=== PATIENT | female | born 1955 | race Asian ===

== ENCOUNTER 2022-05-12 06:00 | Day surgery (SDC) | payer MEDICAID ==
[~2022-05-12] VITALS: Ht 152.4 cm; Wt 54.4 kg
[2022-05-12] MEDS ORDERED: fentaNYL CITRATE/PF 100 MCG/2 ML AMP ONE (07:06)
[2022-05-12] MEDS ORDERED: MIDAZOLAM HCL 5 MG/5 ML VIAL ONE (07:06)
[2022-05-12 12:03] VITALS: BP_SYST 131
== END 2022-05-12 10:25 | disposition home or self-care (01) ==
LOC: SDS 06:00 → SMU 06:00 → SDS 10:25
PROVIDERS: ATTEND Internal Medicine
DX: Z12.11 Encounter for screening for malignant neoplasm of colon (principal); D12.5 Benign neoplasm of sigmoid colon; K64.8 Other hemorrhoids; Z20.822 Contact with and (suspected) exposure to COVID-19; Z79.899 Other long term (current) drug therapy
CPT/HCPCS: 36415; 45385; 82962; 88305; 99152; 99153; U0003; G0378; J2250; J3010